=== PATIENT | female | born 1990 | race Caucasian/White ===

== ENCOUNTER 2018-02-10 14:44 | Emergency (ER) | payer OTHER ==
[~2018-02-10] VITALS: Ht 167.6 cm; Wt 64.9 kg
[2018-02-10] MEDS ORDERED: SYNTHROID125 MC1 PO (14:57)
[2018-02-10 15:33] LABS: URINE BILIRUBIN NEGATIVE (Negative); URINE BLOOD 3+ (Negative); URINE CLARITY CLEAR; URINE COLOR YELLOW; URINE GLUCOSE-RANDOM NEGATIVE (Negative); URINE KETONES NEGATIVE (Negative); URINE LEUKOCYTES-REFLEX NEGATIVE (Negative); URINE NITRITE-REFLEX NEGATIVE (Negative); URINE PROTEIN NEGATIVE (Negative); URINE SPECIFIC GRAVITY 1.015 (1.005-1.030); URINE UROBILINOGEN 0.2 E.U./dl (0.2-1.0)
[2018-02-10 15:44] LABS: ABSOLUTE EOSINOPHILS 0.1 thou/uL (0.0-0.7); ABSOLUTE LYMPHOCYTES 1.3 thou/uL (0.8-5.3); ABSOLUTE MONOCYTES 0.4 thou/uL (0.0-1.2); ABSOLUTE NEUTROPHILS 2.8 thou/uL (1.6-8.1); BASOPHILS 0.4 %; EOSINOPHILS 1.5 %; HEMATOCRIT 33.7 % (37.0-47.0); HEMOGLOBIN 11.5 gm/dL (12.0-15.0); LYMPHOCYTES 28.7 %; MCH 30.6 pg (26.0-34.0); MCHC 34.1 g/dL (28.0-37.0); MCV 89.6 fL (80.0-100.0); MONOCYTES 8.8 %; MPV 9.7 fl. (7.2-11.1); NUCLEATED RBCS 0 /100WBC; PLATELET COUNT* 132 thou/uL (150-400); POLYS 60.6 %; RBC 3.76 mil/uL (4.20-5.00); RDW-CV 12.1 % (10.5-14.5); WBC 4.6 thou/uL (4.0-11.0)
[2018-02-10 15:46] LABS: SQUAMOUS 4-10 Moderate /LPF (0-3); URINE WBC-REFLEX 0-5 Rare /HPF (0-5)
[2018-02-10 15:47] LABS: BACTERIA-REFLEX None Seen /HPF (None Seen); CASTS None Seen /LPF (None Seen); CRYSTALS None Seen /LPF (None Seen)
[2018-02-10 15:51] LABS: CALCIUM 9.2 mg/dL (8.5-10.1); CREATININE 0.6 mg/dL (0.6-1.3); INR 1.1; POTASSIUM 3.8 mmol/L (3.5-5.1); PROTIME 10.7 Seconds (9.20-11.50)
[2018-02-10 15:55] LABS: ALBUMIN 4.1 g/dL (3.4-5.0); TOTAL BILIRUBIN 0.5 mg/dL (<0.1-1.0); TOTAL PROTEIN 7.5 g/dL (6.4-8.2)
[2018-02-10] MEDS ORDERED: BENTYL 20 MG TA20 M1 PO (18:19)
[2018-02-10] MEDS ORDERED: CITRATE OF MAG296 ML PO (18:19)
[2018-02-10 18:31] VITALS: BP 107/63
== END 2018-02-10 18:31 | disposition home or self-care (01) ==
LOC: M.ERS 14:44
PROVIDERS: Nurse Practitioner Family
DX: K59.00 Constipation, unspecified (principal); Z91.040 Latex allergy status

== ENCOUNTER → 2020-07-22 | Outpatient (CLI) | payer OTHER ==
[~2020-07-22] MED LIST: BENTYL 20 MG TA20 M1 PO; CITRATE OF MAG296 ML PO; SYNTHROID125 MC1 PO
== END ==
LOC: M.MRI 07:17
PROVIDERS: ATTEND Family Medicine
DX: G44.52 New daily persistent headache (NDPH) (principal); R41.3 Other amnesia; R53.82 Chronic fatigue, unspecified

== ENCOUNTER → 2020-09-28 | Outpatient (CLI) | payer OTHER | LOC: M.ULTRA 13:34 | PROVIDERS: ATTEND Family Medicine | DX: O34.80 Maternal care for other abnormalities of pelvic organs, unspecified trimester (principal); N83.292 Other ovarian cyst, left side; Z3A.00 Weeks of gestation of pregnancy not specified ==